=== PATIENT | male | born 1990 | race Caucasian/White ===

== ENCOUNTER 2016-04-23 18:09 | Emergency (ER) | payer SELFPAY ==
--- NOTE | 2016-04-23 19:13 | ED NURSING NOTES ---
Clinical Report - Nurses [facility] [address] [place] [address] 04/23/2016 18:11 [id number] TRI[facility] Triage time 18:28 Apr 23 2016. Acuity: LEVEL 3. Chief Complaint: PAIN WITH URINATION and PENILE DISCHARGE. KATE COMA SCORE: Kate Coma Scale: 15- eyes open spontaneously (4); best verbal response- oriented x 4 (5); best motor response- obeys commands (6). --18:32 Rodger Swanson R.N. 18:28 04/23/16. BP: 125/82. HR: 95. RR: 18. O2 saturation: 100%. Temp: 98.4 F. Pain level now 8/10. --18:32 Rodger Swanson R.N. Weight: 77.1 kg stated. Height/Length: 66 inches Per Patient. BMI: 27.4. --18:31 Rodger Swanson R.N. Medications None. --18:29 Rodger Swanson R.N. Allergies No Known Drug Allergy. --18:29 Rodger Swanson R.N. History Arrived by private vehicle. Historian: patient. Onset was gradual. (Monday). He has had testicular pain, and urgency of urination. No fever or inguinal swelling. Able to void. Treatment RARE/ENDANGERED SPECIES SPECIALIST: None. PAST MEDICAL HX: A single episode of UTI. No history of diabetes mellitus. No history of benign prostatic hypertrophy or sexually transmitted disease. Immunizations: up-to-date. SOCIAL HX: Former smoker, end date 01/2016. Alcohol use; consumes beer weekly. History of drug use: marijuana. SELF HARM ASSESSMENT: A self harm assessment was performed. The patient answered "no" to the question "Have you recently felt down, depressed, or hopeless?" and "Do you have thoughts of harming or killing yourself?". FALL RISK ASSESSMENT: Fall risk assessment completed. No fall risk identified. NUTRITIONAL RISK ASSESSMENT: The nutritional risk assessment revealed no deficiencies. FUNCTIONAL ASSESSMENT: Functional assessment: no impairments noted. LEARNING NEEDS ASSESSMENT: The learning needs assessment revealed no barriers. ABUSE ASSESSMENT: Abuse assessment: (yes) The patient was asked "Do you feel safe in your home?". SKIN INTEGRITY ASSESSMENT: Skin integrity risk assessment completed. No skin integrity risk identified. --18:32 Rodger Swanson R.N. ( Girlfriend was seen and told she probably has either gonorrhea or Chlamydia.). --18:34 Rodger Swanson R.N. PROBLEMS: no known problems. ADDITIONAL SURGERIES: Arm fx . Head surgery for mumps problems . --18:30 Rodger Swanson R.N. Interventions ID band on patient. --18:32 Rodger Swanson R.N. PHYSICAL ASSESSMENT Ambulatory to room. GENERAL / NEURO / PSYCH: Alert. Oriented X 4. Appears anxious. HEENT: Mucous membranes are pink. RESPIRATORY: Respirations not labored. Breath sounds within normal limits. CVS: Normal heart rate and rhythm. Capillary refill less than 2 seconds. GI / : Abdomen soft and nontender. Bowel sounds within normal limits. Penile abnormality noted (pains with erection stabbing). Urethral discharge. Scrotal tenderness. SKIN: Skin is warm and dry. --18:34 Rodger Swanson R.N. NURSING PROGRESS NOTES Pulse oximeter and NIBP monitor placed on patient. Patient gowned. Head of bed elevated (90). Reassurance given. Call light placed in reach. Side rails up x 1. Bed placed in lowest position. Brakes of bed on. --18:35 Rodger Swanson R.N. Clean catch urine collected. (and dirty urine sent). --18:35 Rodger Swanson R.N. 19:23 04/23/2016 Azithromycin PO Tablets 1000 mg given. Allergies verified and confirmed 5 rights. --19:23 Lamine Bowen R.N. 19:04/23/2016 Ceftriaxone IM 250 mg given. Given in the left gluteus darleen. Allergies verified and confirmed 5 rights. --19:23 Lamine Bowen R.N. DISPOSITION / DISCHARGE Condition at departure: stable. No learning barriers present. Discharge instructions provided and reviewed with the patient. Patient verbalized understanding. Written instructions provided in Sami. The patient was discharged by the physician. He was discharged home and accompanied by medical researcher. He left the Emergency Department ambulatory and via private vehicle. Patient driving. --19:37 Sheriff Luis R.N. 19:35 04/23/16. BP: 109/71. HR: 81. RR: 18. O2 saturation: 97%. Temp: 98.4 F. Pain level now: 03/18. --19:37 Sheriff Luis R.N. Locked/Released at 04/23/2016 19:37 by Sheriff Luis R.N.
--- NOTE | 2016-04-23 19:13 | ED CLINICAL REPORT ---
Clinical Report - Physicians/Mid Levels [facility] [address] [place] [address] 04/23/2016 18:11 Patient: ANDREINA HURTADO Time Seen: 18:18; initial patient contact. Arrived- By private vehicle. Historian- patient. HISTORY OF PRESENT ILLNESS Chief Complaint: PENILE DISCHARGE and DYSURIA. This started about 3 days ago and is still present. The problem is described as moderate. It was gradual in onset. The patient has had penile discharge, discomfort with urination and urgency of urination. The patient has had urinary frequency. No genital lesion, testicular pain or flank pain. Able to void. Not voiding only small amounts. The patient has had unprotected intercourse. He has had an unconfirmed exposure to a sexually transmitted disease; GC. Similar symptoms previously: None. Recent medical care: Not recently seen/assessed. REVIEW OF SYSTEMS No fever, chills, flank pain, hematuria or vomiting. No diarrhea. He has had abdominal pain. All systems otherwise negative, except as recorded above. PAST HISTORY ( Mumps Surgical: Arm fx . Head surgery for mumps problems .). Medications: None. Allergies: No Known Drug Allergy. SOCIAL HISTORY Former smoker. Occasional alcohol use. History of drug use: marijuana. ADDITIONAL NOTES The nursing notes have been reviewed with agreement regarding the chief complaint, PMH and patient medications and allergies. PHYSICAL EXAM Vital Signs: 04/23/2016 18:28 BP: 125/82. HR: 95. RR: 18. O2 saturation: 100%. Temp: 98.4 F. Have been reviewed as normal. Appearance: Alert. Oriented X3. No acute distress. ENT: Normal external inspection. CVS: Heart sounds normal. Rate normal. Rhythm normal. Respiratory: No respiratory distress. Breath sounds normal. Abdomen: Soft and nontender. Bowel sounds normal. No mass. : A scant amount of purulent urethral discharge. No genital lesion. Skin: Normal skin color. No rash. Neuro: Oriented X 3. LABS, X-RAYS, AND EKG Laboratory Tests: UA-Culture if indicated: (BRANDYN: 04/23/2016 18:30) ( MsgRcvd 04/23/2016 19:03) Final results Test Result Flag Units (Reference) URINE COLOR YELLOW URINE APPEARANCE SL CLOUDY URINE GLUCOSE NEGATIVE (NEGATIVE) URINE BILIRUBIN NEGATIVE (NEGATIVE) URINE KETONE NEGATIVE (NEGATIVE) URINE SPECIFIC GRAVITY >= 1.030 (1.010-1.030) URINE PH 6.0 (5.0-8.0) URINE PROTEIN TRACE (NEGATIVE) URINE UROBILINOGEN 0.2 EU/dL (0.2-1.0) URINE NITRITE NEGATIVE (NEGATIVE) URINE BLOOD 2+ (NEGATIVE) URINE LEUK ESTERASE POSITIVE (NEGATIVE) URINE RBC NONE SEEN rbc/hpf (0-1) URINE WBC >100 wbc/hpf (0-1) URINE EPITHELIAL CELLS 0-1 EPI/hpf (0-5) URINE BACTERIA MODERATE (2+ TO 3+) (NONE SEEN) URINE COMMENT CULTURE INDICATED URINE CULTURES ARE SET-UP BASED ON THE FOLLOWING CRITERIA:POSITIVE NITRITEPOSITIVE LEUKOCYTE ESTERASEGREATER THAN 10 WHITE BLOOD CELLSMODERATE (2+) OR GREATER BACTERIA . PROGRESS AND PROCEDURES Disposition: Discharged home in good and improved condition. Condition: good. CLINICAL IMPRESSION Exposure to STD: gonorrhea. INSTRUCTIONS Your Current Medications: CONTINUE TAKING THE FOLLOWING MEDICATIONS: None*. Follow-up: Screening today revealed the patient's blood pressure to be in the pre-hypertensive range. The patient should follow up with a primary care provider for blood pressure management. Follow-up with: [facility], , , [address], [facility], [id number] Follow up in about three days. Call for an appointment. (Electronically signed by Byron Pineda Dr. 04/23/2016 19:13)
--- NOTE | 2016-04-23 19:13 | ED NURSING NOTES ---
Clinical Report - Nurses [facility] [address] [place] [address] 04/23/2016 18:11 [id number] TRIAGE Triage time 18:28 Apr 23 2016. Acuity: LEVEL 3. Chief Complaint: PAIN WITH URINATION and PENILE DISCHARGE. KATE COMA SCORE: Kate Coma Scale: 15- eyes open spontaneously (4); best verbal response- oriented x 4 (5); best motor response- obeys commands (6). --18:32 Rodger Swanson R.N. 18:28 04/23/16. BP: 125/82. HR: 95. RR: 18. O2 saturation: 100%. Temp: 98.4 F. Pain level now 8/10. --18:32 Rodger Swanson R.N. Weight: 77.1 kg stated. Height/Length: 66 inches Per Patient. BMI: 27.4. --18:31 Rodger Swanson R.N. Medications None. --18:29 Rodger Swanson R.N. Allergies No Known Drug Allergy. --18:29 Rodger Swanson R.N. History Arrived by private vehicle. Historian: patient. Onset was gradual. (Monday). He has had testicular pain, and urgency of urination. No fever or inguinal swelling. Able to void. Treatment SCHOOL CHILD CARE ATTENDANT: None. PAST MEDICAL HX: A single episode of UTI. No history of diabetes mellitus. No history of benign prostatic hypertrophy or sexually transmitted disease. Immunizations: up-to-date. SOCIAL HX: Former smoker, end date 01/2016. Alcohol use; consumes beer weekly. History of drug use: marijuana. SELF HARM ASSESSMENT: A self harm assessment was performed. The patient answered "no" to the question "Have you recently felt down, depressed, or hopeless?" and "Do you have thoughts of harming or killing yourself?". FALL RISK ASSESSMENT: Fall risk assessment completed. No fall risk identified. NUTRITIONAL RISK ASSESSMENT: The nutritional risk assessment revealed no deficiencies. FUNCTIONAL ASSESSMENT: Functional assessment: no impairments noted. LEARNING NEEDS ASSESSMENT: The learning needs assessment revealed no barriers. ABUSE ASSESSMENT: Abuse assessment: (yes) The patient was asked "Do you feel safe in your home?". SKIN INTEGRITY ASSESSMENT: Skin integrity risk assessment completed. No skin integrity risk identified. --18:32 Rodger Swanson R.N. ( Girlfriend was seen and told she probably has either gonorrhea or Chlamydia.). --18:34 Rodger Swanson R.N. PROBLEMS: no known problems. ADDITIONAL SURGERIES: Arm fx . Head surgery for mumps problems . --18:30 Rodger Swanson R.N. Interventions ID band on patient. --18:32 Rodger Swanson R.N. PHYSICAL ASSESSMENT Ambulatory to room. GENERAL / NEURO / PSYCH: Alert. Oriented X 4. Appears anxious. HEENT: Mucous membranes are pink. RESPIRATORY: Respirations not labored. Breath sounds within normal limits. CVS: Normal heart rate and rhythm. Capillary refill less than 2 seconds. GI / : Abdomen soft and nontender. Bowel sounds within normal limits. Penile abnormality noted (pains with erection stabbing). Urethral discharge. Scrotal tenderness. SKIN: Skin is warm and dry. --18:34 Rodger Swanson R.N. NURSING PROGRESS NOTES Pulse oximeter and NIBP monitor placed on patient. Patient gowned. Head of bed elevated (90). Reassurance given. Call light placed in reach. Side rails up x 1. Bed placed in lowest position. Brakes of bed on. --18:35 Rodger Swanson R.N. Clean catch urine collected. (and dirty urine sent). --18:35 Rodger Swanson R.N. 19:23 04/23/2016 Azithromycin PO Tablets 1000 mg given. Allergies verified and confirmed 5 rights. --19:23 Lamine Bowen R.N. 19:04/23/2016 Ceftriaxone IM 250 mg given. Given in the left gluteus darleen. Allergies verified and confirmed 5 rights. --19:23 Lamine Bowen R.N. DISPOSITION / DISCHARGE Condition at departure: stable. No learning barriers present. Discharge instructions provided and reviewed with the patient. Patient verbalized understanding. Written instructions provided in Romansh. The patient was discharged by the physician. He was discharged home and accompanied by theatrical variety agent. He left the Emergency Department ambulatory and via private vehicle. Patient driving. --19:37 Sheriff Luis R.N. 19:35 04/23/16. BP: 109/71. HR: 81. RR: 18. O2 saturation: 97%. Temp: 98.4 F. Pain level now: 03/18. --19:37 Sheriff Luis R.N. Locked/Released at 04/23/2016 19:37 by Sheriff Luis R.N.
--- NOTE | 2016-04-23 19:13 | ED ORDER SUMMARY ---
..... Patient: ANDREINA HURTADO OrderSheet [facility] VisitID: [id number] [address] [place] [address] 25y, M Registration Date/Time: 04/23/2016 ORDER SHEET Weight: 77.1 kg (stated) Allergies: No Known Drug Allergy GENERAL ORDERS: GC/Chlamydia, Urine (Urine, Clean Catch) (...) Urgent (18:48 04/23/2016 Don Choudhary) (Ack 18:55 Jacquelin) (19:05 DDavis R.N.) UA-Culture if indicated Urgent (18:48 04/23/2016 Don Choudhary) (Ack 18:55 Jacquelin) (19:04 DDavis R.N.) MEDICATION ORDERS: Azithromycin PO 1000 mg (NOW) (18:49 04/23/2016 Don Choudhary) (19:23 DDavis R.N.) Ceftriaxone IM 250 mg (NOW) (18:49 04/23/2016 Don Choudhary) (19:23 DDavis R.N.) IV FLUIDS: ORDER SHEET NOTES: [Electronically signed by Byron Pineda Dr. (19:13 04/23/2016)] [Electronically signed by Sheriff Brad Luis (19:37 04/23/2016)] [Electronically locked/signed by Sheriff Brad Luis (19:37 04/23/2016)]
--- NOTE | 2016-04-23 19:13 | ED CLINICAL REPORT ---
Clinical Report - Physicians/Mid Levels [facility] [address] [place] [address] 04/23/2016 18:11 Patient: ANDREINA HURTADO Time Seen: 18:18; initial patient contact. Arrived- By private vehicle. Historian- patient. HISTORY OF PRESENT ILLNESS Chief Complaint: PENILE DISCHARGE and DYSURIA. This started about 3 days ago and is still present. The problem is described as moderate. It was gradual in onset. The patient has had penile discharge, discomfort with urination and urgency of urination. The patient has had urinary frequency. No genital lesion, testicular pain or flank pain. Able to void. Not voiding only small amounts. The patient has had unprotected intercourse. He has had an unconfirmed exposure to a sexually transmitted disease; GC. Similar symptoms previously: None. Recent medical care: Not recently seen/assessed. REVIEW OF SYSTEMS No fever, chills, flank pain, hematuria or vomiting. No diarrhea. He has had abdominal pain. All systems otherwise negative, except as recorded above. PAST HISTORY ( Mumps Surgical: Arm fx . Head surgery for mumps problems .). Medications: None. Allergies: No Known Drug Allergy. SOCIAL HISTORY Former smoker. Occasional alcohol use. History of drug use: marijuana. ADDITIONAL NOTES The nursing notes have been reviewed with agreement regarding the chief complaint, PMH and patient medications and allergies. PHYSICAL EXAM Vital Signs: 04/23/2016 18:28 BP: 125/82. HR: 95. RR: 18. O2 saturation: 100%. Temp: 98.4 F. Have been reviewed as normal. Appearance: Alert. Oriented X3. No acute distress. ENT: Normal external inspection. CVS: Heart sounds normal. Rate normal. Rhythm normal. Respiratory: No respiratory distress. Breath sounds normal. Abdomen: Soft and nontender. Bowel sounds normal. No mass. : A scant amount of purulent urethral discharge. No genital lesion. Skin: Normal skin color. No rash. Neuro: Oriented X 3. LABS, X-RAYS, AND EKG Laboratory Tests: UA-Culture if indicated: (BRANDYN: 04/23/2016 18:30) ( MsgRcvd 04/23/2016 19:03) Final results Test Result Flag Units (Reference) URINE COLOR YELLOW URINE APPEARANCE SL CLOUDY URINE GLUCOSE NEGATIVE (NEGATIVE) URINE BILIRUBIN NEGATIVE (NEGATIVE) URINE KETONE NEGATIVE (NEGATIVE) URINE SPECIFIC GRAVITY >= 1.030 (1.010-1.030) URINE PH 6.0 (5.0-8.0) URINE PROTEIN TRACE (NEGATIVE) URINE UROBILINOGEN 0.2 EU/dL (0.2-1.0) URINE NITRITE NEGATIVE (NEGATIVE) URINE BLOOD 2+ (NEGATIVE) URINE LEUK ESTERASE POSITIVE (NEGATIVE) URINE RBC NONE SEEN rbc/hpf (0-1) URINE WBC >100 wbc/hpf (0-1) URINE EPITHELIAL CELLS 0-1 EPI/hpf (0-5) URINE BACTERIA MODERATE (2+ TO 3+) (NONE SEEN) URINE COMMENT CULTURE INDICATED URINE CULTURES ARE SET-UP BASED ON THE FOLLOWING CRITERIA:POSITIVE NITRITEPOSITIVE LEUKOCYTE ESTERASEGREATER THAN 10 WHITE BLOOD CELLSMODERATE (2+) OR GREATER BACTERIA . PROGRESS AND PROCEDURES Disposition: Discharged home in good and improved condition. Condition: good. CLINICAL IMPRESSION Exposure to STD: gonorrhea. INSTRUCTIONS Your Current Medications: CONTINUE TAKING THE FOLLOWING MEDICATIONS: None*. Follow-up: Screening today revealed the patient's blood pressure to be in the pre-hypertensive range. The patient should follow up with a primary care provider for blood pressure management. Follow-up with: [facility], , , [address], [facility], [id number] Follow up in about three days. Call for an appointment. (Electronically signed by Byron Pineda Dr. 04/23/2016 19:13)
--- NOTE | 2016-04-23 19:13 | ED ORDER SUMMARY ---
..... Patient: ANDREINA HURTADO OrderSheet [facility] VisitID: [id number] [address] [place] [address] 25y, M Registration Date/Time: 04/23/2016 ORDER SHEET Weight: 77.1 kg (stated) Allergies: No Known Drug Allergy GENERAL ORDERS: GC/Chlamydia, Urine (Urine, Clean Catch) (...) Urgent (18:48 04/23/2016 Don Choudhary) (Ack 18:55 Jacquelin) (19:05 DDavis R.N.) UA-Culture if indicated Urgent (18:48 04/23/2016 Don Choudhary) (Ack 18:55 Jacquelin) (19:04 DDavis R.N.) MEDICATION ORDERS: Azithromycin PO 1000 mg (NOW) (18:49 04/23/2016 Don Choudhary) (19:23 DDavis R.N.) Ceftriaxone IM 250 mg (NOW) (18:49 04/23/2016 Don Choudhary) (19:23 DDavis R.N.) IV FLUIDS: ORDER SHEET NOTES: [Electronically signed by Byron Pineda Dr. (19:13 04/23/2016)] [Electronically signed by Sheriff Brad Luis (19:37 04/23/2016)] [Electronically locked/signed by Sheriff Brad Luis (19:37 04/23/2016)]
--- NOTE | 2016-04-23 19:38 | ED MED RECONCILIATION SUMMARY ---
Patient: ANDREINA HURTADO Medication Reconciliation Report [facility] VisitID: [id number] [address] [place] [address] 25y, M Registration Date/Time: 04/23/2016 Weight: 77.1 kg Height/Length: 66 in. BMI: 27.4 ALLERGIES: No Known Drug Allergy The patient's Home Medications are listed below: NONE. The source(s) of the original Home Medication information: Not obtained. The following Medications were given to the patient in the Emergency Department: Azithromycin [PO] PO 1000 mg, administered: 04/23/2016 7:23:00 PM Ceftriaxone [IM] IM 250 mg, administered: 04/23/2016 7:23:00 PM The following Medications were prescribed to the patient: None.
--- NOTE | 2016-04-23 19:38 | ED MAR SUMMARY ---
..... Medication Administration Record [facility] [address] [place] [address] Patient: ANDREINA HURTADO Visit ID: [id number] 25y, M Weight: 77.1 kg Height/Length: 66 in BMI: 27.4 ALLERGIES: No Known Drug Allergy Given 04/23/2016 Lamine Bowen R.N. Medication Administered: AZITHROMYCIN [PO], Dose: 1000 mg Tablets PO. Medication Ordered: Azithromycin PO 1000 mg (NOW). Given :04/23/2016 Lamine Bowen R.N. Medication Administered: CEFTRIAXONE [IM], Dose: 250 mg IM. Medication Ordered: Ceftriaxone IM 250 mg (NOW).
--- NOTE | 2016-04-23 19:38 | ED DISCHARGE INSTRUCTIONS ---
Patient: ANDREINA HURTADO General Instructions [facility] VisitID: [id number] [address] [place] [address] 25y, M Registration Date/Time: 04/23/2016 Exposure to STD: gonorrhea. INSTRUCTIONS Your Current Medications: CONTINUE TAKING THE FOLLOWING MEDICATIONS: None*. Follow-up: Screening today revealed the patient's blood pressure to be in the pre-hypertensive range. The patient should follow up with a primary care provider for blood pressure management. Follow-up with: [facility], , , [address], , [place], [id number] Follow up in about three days. Call for an appointment. ADDITIONAL INFORMATION Std (Urethritis) (Male, Adult: Gc Or Chlamydia) You have an infection in the urethra (the channel in the penis that passes urine). This is most often due to a bacterial infection with either "Chlamydia" or "Gonorrhea." This is a sexually transmitted disease (STD). It is highly contagious and passed by sexual contact with an infected partner. Symptoms begin within 1-3 weeks after exposure. There is usually a discharge from the penis and burning during urination. Many women with this infection will have only mild symptoms or no symptoms at all early in the disease. A culture test may be taken to confirm the diagnosis. Antibiotics may be started before the culture test returns. Home Care: Your sexual partner needs to be treated even if there are no symptoms. Your partner should contact their own doctor or go to an urgent care clinic or the Public Health Department to be examined and treated. Avoid sexual activity until both you and your partner have completed all antibiotic medicine, and you have been told by your doctor that you are no longer contagious. Take all antibiotic medicine as directed until it is finished. Otherwise, symptoms may recur. Learn about safe sex practices and use these in the future. The safest sex is with a partner who has tested negative and only has sex with you. Condoms offer protection from spreading some sexually transmitted diseases including Gonorrhea, Chlamydia and HIV, but are not a guarantee. Follow Up with your doctor or as advised by our staff. If a culture test was taken, you may call us in three days for the results, or as directed. Another culture test should be taken 4-6 weeks after treatment to be sure the infection has cleared. Follow up with your doctor or the Public Health Department for complete STD screening, including HIV testing. For more information about STD's, contact the National STD Hotline: . Get Prompt Medical Attention if any of the following occur: No improvement after three days of treatment Inability to urinate due to pain Rash or joint pain Painful sores on the penis Enlarged painful lymph nodes (lumps) in the groin Testicle pain or swelling of the scrotum You have been given the following additional information: Urethritis, Male (Gc Vs. Chlam) (Electronically signed by Byron Pineda Dr. 04/23/2016 19:13)
--- NOTE | 2016-04-23 19:38 | ED DISCHARGE INSTRUCTIONS ---
Patient: ANDREINA HURTADO General Instructions [facility] VisitID: [id number] [address] [place] [address] 25y, M Registration Date/Time: 04/23/2016 Exposure to STD: gonorrhea. INSTRUCTIONS Your Current Medications: CONTINUE TAKING THE FOLLOWING MEDICATIONS: None*. Follow-up: Screening today revealed the patient's blood pressure to be in the pre-hypertensive range. The patient should follow up with a primary care provider for blood pressure management. Follow-up with: [facility], , , [address], , [place], [address] Follow up in about three days. Call for an appointment. ADDITIONAL INFORMATION Std (Urethritis) (Male, Adult: Gc Or Chlamydia) You have an infection in the urethra (the channel in the penis that passes urine). This is most often due to a bacterial infection with either "Chlamydia" or "Gonorrhea." This is a sexually transmitted disease (STD). It is highly contagious and passed by sexual contact with an infected partner. Symptoms begin within 1-3 weeks after exposure. There is usually a discharge from the penis and burning during urination. Many women with this infection will have only mild symptoms or no symptoms at all early in the disease. A culture test may be taken to confirm the diagnosis. Antibiotics may be started before the culture test returns. Home Care: Your sexual partner needs to be treated even if there are no symptoms. Your partner should contact their own doctor or go to an urgent care clinic or the Public Health Department to be examined and treated. Avoid sexual activity until both you and your partner have completed all antibiotic medicine, and you have been told by your doctor that you are no longer contagious. Take all antibiotic medicine as directed until it is finished. Otherwise, symptoms may recur. Learn about safe sex practices and use these in the future. The safest sex is with a partner who has tested negative and only has sex with you. Condoms offer protection from spreading some sexually transmitted diseases including Gonorrhea, Chlamydia and HIV, but are not a guarantee. Follow Up with your doctor or as advised by our staff. If a culture test was taken, you may call us in three days for the results, or as directed. Another culture test should be taken 4-6 weeks after treatment to be sure the infection has cleared. Follow up with your doctor or the Public Health Department for complete STD screening, including HIV testing. For more information about STD's, contact the National STD Hotline: . Get Prompt Medical Attention if any of the following occur: No improvement after three days of treatment Inability to urinate due to pain Rash or joint pain Painful sores on the penis Enlarged painful lymph nodes (lumps) in the groin Testicle pain or swelling of the scrotum You have been given the following additional information: Urethritis, Male (Gc Vs. Chlam) (Electronically signed by Byron Pineda Dr. 04/23/2016 19:13)
--- NOTE | 2016-04-23 19:38 | ED MED RECONCILIATION SUMMARY ---
Patient: ANDREINA HURTADO Medication Reconciliation Report [facility] VisitID: [id number] [address] [place] [address] 25y, M Registration Date/Time: 04/23/2016 Weight: 77.1 kg Height/Length: 66 in. BMI: 27.4 ALLERGIES: No Known Drug Allergy The patient's Home Medications are listed below: NONE. The source(s) of the original Home Medication information: Not obtained. The following Medications were given to the patient in the Emergency Department: Azithromycin [PO] PO 1000 mg, administered: 04/23/2016 7:23:00 PM Ceftriaxone [IM] IM 250 mg, administered: 04/23/2016 7:23:00 PM The following Medications were prescribed to the patient: None.
--- NOTE | 2016-04-23 19:38 | ED MAR SUMMARY ---
..... Medication Administration Record [facility] [address] [place] [address] Patient: ANDREINA HURTADO Visit ID: [id number] 25y, M Weight: 77.1 kg Height/Length: 66 in BMI: 27.4 ALLERGIES: No Known Drug Allergy Given 04/23/2016 Lamine Bowen R.N. Medication Administered: AZITHROMYCIN [PO], Dose: 1000 mg Tablets PO. Medication Ordered: Azithromycin PO 1000 mg (NOW). Given :04/23/2016 Lamine Bowen R.N. Medication Administered: CEFTRIAXONE [IM], Dose: 250 mg IM. Medication Ordered: Ceftriaxone IM 250 mg (NOW).
== END 2016-04-23 19:35 | disposition home or self-care (01) ==
LOC: ED SRH 18:09
DX: A54.9 Gonococcal infection, unspecified (principal); Z87.891 Personal history of nicotine dependence
CPT/HCPCS: 90004; 90469; 91227; 91228

== ENCOUNTER 2016-06-03 16:36 | Emergency (ER) | payer OTHER ==
--- NOTE | 2016-06-03 18:29 | ED ORDER SUMMARY ---
..... Patient: ANDREINA HURTADO OrderSheet [facility] VisitID: [id number] [place] [address] 25y, M Registration Date/Time: 06/03/2016 ORDER SHEET Weight: 79.3 kg (stated) Allergies: No Known Drug Allergy GENERAL ORDERS: CBC w Diff Urgent (17:06/03/2016 HBivens A.R.N.P.) (Ack 17:05 IJurca ER Tech1) (17:23 TLewis R.N.) CMP Urgent (17:06/03/2016 HBivens A.R.N.P.) (Ack 17:05 IJurca ER Tech1) (17:23 TLewis R.N.) UA-Culture if indicated Urgent (17:06/03/2016 HBivens A.R.N.P.) (17:04 TLewis R.N.) Amylase Urgent (17:06/03/2016 HBivens A.R.N.P.) (Ack 17:05 IJurca ER Tech1) (17:23 TLewis R.N.) Lipase Urgent (17:06/03/2016 HBivens A.R.N.P.) (Ack 17:05 IJurca ER Tech1) (17:23 TLewis R.N.) MEDICATION ORDERS: IV FLUIDS: IV NS : initial bolus 1000 mL (1000 mL/hr), then none - (NOW) (17:06/03/2016 HBivens A.R.N.P.) (17:25 TLewis R.N.) Zofran IV 4 mg (NOW) (17:06/03/2016 HBivens A.R.N.P.) (17:24 TLewis R.N.) Toradol IV 30 mg (NOW) (17:06/03/2016 HBivens A.R.N.P.) (17:24 TLewis R.N.) IV Saline Lock (17:06/03/2016 HBivens A.R.N.P.) (17:23 TLewis R.N.) ORDER SHEET NOTES: [Electronically signed by Augustine Vallecillo R.N. (18:43 06/03/2016)] [Electronically signed by Stefany Pro (21:26 06/03/2016)] [Electronically locked/signed by Augustine Vallecillo R.N. (18:43 06/03/2016)]
--- NOTE | 2016-06-03 18:29 | ED CLINICAL REPORT ---
Clinical Report - Physicians/Mid Levels [facility] [address] [place] [address] 06/03/2016 16:38 Patient: ANDREINA HURTADO Time Seen: 16:56; initial patient contact, initial documentation, patient care assumed. Arrived- By private vehicle. Historian- patient. HISTORY OF PRESENT ILLNESS Chief Complaint: VOMITING. This started about 4 days ago and is still present. It was gradual in onset and has been intermittent. No recent travel. He has had nausea. He has had vomiting (today, about 7-8 episodes). The vomiting has occurred several times and has been bilious. No feculent emesis, blood-tinged emesis, coffee-grounds emesis, frankly bloody emesis or unusually dark emesis. No diarrhea, constipation, flank pain, history of possible bad food exposure or known contact with a sick individual. No change in routine. He has had mild, constant abdominal pain (feels sore). The pain is described as generalized. No nausea, vomiting, diarrhea or radiation of abdominal pain to the back. Has not recently been camping or on antibiotics. The illness is described as moderate. (started monday, felt weak and kind of queasy, es fine, mon and same as monday, and then today woke up and started puking). Similar symptoms previously: None. Recent medical care: Not recently seen/assessed. REVIEW OF SYSTEMS No fever, difficulty with urination, dark urine, chest pain or difficulty breathing. All systems otherwise negative, except as recorded above. PAST HISTORY See nurses notes. PROBLEMS: Exposure To STD. UTI - Urinary Tract Infection. --16:46 Hank Catalan R.N. Treated for Gonorrhea 2016. --16:56 Hank Catalan R.N. ADDITIONAL SURGERIES: Arm fx . Head surgery for mumps problems . --16:46 Hank Catalan R.N. SOCIAL HISTORY Never smoker. Occasional alcohol use. History of occasional drug use: marijuana. Recently used drugs days ago. No recent travel. Is a local resident. FAMILY HISTORY Diabetes in first-degree relative. ADDITIONAL NOTES The nursing notes have been reviewed with agreement regarding the chief complaint, HPI, ROS, PMH and patient medications and allergies. PHYSICAL EXAM Vital Signs: 06/03/2016 16:43 BP: 125/82. HR: 73. RR: 16. O2 saturation: 100%. Temp: 98.5 F. Pain level now: 5/10. Have been reviewed as normal and appear to be correct. Appearance: Alert. Oriented X3. No acute distress. Eyes: Pupils equal, round and reactive to light. Eyes normal inspection. Neck: Normal inspection. Neck supple. CVS: Normal heart rate and rhythm. Heart sounds normal. Pulses normal. Respiratory: No respiratory distress. Breath sounds normal. Abdomen: Soft and nontender. Bowel sounds normal. No organomegaly. No mass. Back: Normal inspection. Skin: Skin warm and dry. Normal skin color. No rash. Normal skin turgor. Extremities: Extremities exhibit normal ROM. No lower extremity edema. Neuro: Oriented X 3. No motor deficit. No sensory deficit. LABS, X-RAYS, AND EKG Laboratory Tests: UA-Culture if indicated: (BRANDYN: 06/03/2016 16:55) ( Mscvd 06/03/2016 17:21) Final results Test Result Flag Units (Reference) URINE COLOR YELLOW URINE APPEARANCE CLEAR URINE GLUCOSE NEGATIVE (NEGATIVE) URINE BILIRUBIN NEGATIVE (NEGATIVE) URINE KETONE TRACE (NEGATIVE) URINE SPECIFIC GRAVITY 1.015 (1.010-1.030) URINE PH 7.0 (5.0-8.0) URINE PROTEIN NEGATIVE (NEGATIVE) URINE UROBILINOGEN 0.2 EU/dL (0.2-1.0) URINE NITRITE NEGATIVE (NEGATIVE) URINE BLOOD TRACE-INTACT (NEGATIVE) URINE LEUK ESTERASE NEGATIVE (NEGATIVE) URINE RBC RARE rbc/hpf (0-1) URINE WBC RARE wbc/hpf (0-1) URINE EPITHELIAL CELLS RARE EPI/hpf (0-5) URINE BACTERIA NONE SEEN (NONE SEEN) URINE COMMENT CULT NOT INDICATED URINE CULTURES ARE SET-UP BASED ON THE FOLLOWING CRITERIA:POSITIVE NITRITEPOSITIVE LEUKOCYTE ESTERASEGREATER THAN 10 WHITE BLOOD CELLSMODERATE (2+) OR GREATER BACTERIA CBC w Diff: (BRANDYN: 06/03/2016 17:30) ( MsgRcvd 06/03/2016 17:44) Final results Test Result Flag Units (Reference) WHITE BLOOD COUNT 6.7 K/uL (4.5-11.5) RED BLOOD COUNT 4.54 M/uL (4.50-5.90) HEMOGLOBIN 14.6 gm/dL (13.5-17.5) HEMATOCRIT 43.0 % (41.0-53.0) MEAN CELL VOLUME 95 fL (80-100) MEAN CORPUSCULAR HGB 32 pg (26-34) MEAN CORPUSCULAR HGB CONC 34 g/dL (31-37) RED CELL DISTRIBUTION WIDTH 12.6 % (11.6-14.8) PLATELET COUNT 278 K/uL (150-400) NEUTROPHIL % 52.1 % (50-75) LYMPH % 39.0 % (25-40) MONO % 8.3 % (3-14) EOSINOPHIL % 0.3 % (0-4) BASOPHIL % 0.3 % (0-2) CMP: (BRANDYN: 06/03/2016 17:30) ( MsgRcvd 06/03/2016 17:57) Final results Test Result Flag Units (Reference) GLUCOSE 88 mg/dL (70-110) BUN 13 mg/dL (7-18) CREATININE 0.9 mg/dL (0.6-1.3) Estimated GFR >60 mL/min Estimated GFR- >60 mL/min Note: Persistent reduction over 3 months in eGFR<60 mL/min/1.73 m2 defines CKD. Patients with eGFR values>=60 mL/min/1.73 m2 may also have CKD if evidence ofpersistent proteinuria. Additional information may be foundat www.kidney.org. SODIUM 143 mmol/L (136-145) POTASSIUM 4.0 mmol/L (3.5-5.1) CHLORIDE 106 mmol/L (98-107) CARBON DIOXIDE 26 mmol/L (21-32) CALCIUM 9.3 mg/dL (8.5-10.1) TOTAL PROTEIN 8.1 g/dL (6.4-8.2) ALBUMIN 4.0 g/dL (3.3-5.0) BILIRUBIN, TOTAL 0.6 mg/dL (0.0-1.0) ALKALINE PHOSPHATASE 87 U/L (46-116) AST (SGOT) 24 U/L (15-37) ALT (SGPT) 52 U/L (12-78) LIPASE 142 U/L (73-393) AMYLASE 67 U/L (25-115) . PROGRESS AND PROCEDURES Patient counseled in person regarding the patient's stable condition, test results and diagnosis. 18:12. Differential Diagnosis: I considered gastritis, peptic ulcer disease, ischemia, gastroesophageal reflux disease, gastroparesis, Crohn's disease, ulcerative colitis, small bowel obstruction, colonic obstruction, colon cancer, gastroenteritis, cholecystitis, pancreatitis, viral syndrome, enterocolitis, urinary tract infection, hepatitis, sepsis, drugs and psychogenic etiology as a possible cause of vomiting in this patient. This is a partial list of diagnoses considered. Above considerations are based on history, physical exam, reassessment and laboratory data. Differential diagnosis was discussed with patient. Disposition: Discharged home in good and improved condition (18:29). Condition: good and stable. CLINICAL IMPRESSION Intractable vomiting with nausea. No dehydration or volume depletion. Not bilious. INSTRUCTIONS Do not work today, for two days. Take clear liquids only (frequent sips) for the next 24 hours until better. May continue medications with sips only. Advance diet as tolerated. Avoid. Warnings: GENERAL WARNINGS: Return or contact your physician immediately if your condition worsens or changes unexpectedly, if not improving as expected, or if other problems arise. SPECIFICALLY, return if you develop pain in the abdomen or pelvis, fever, the inability to keep fluids down, blood in vomitus, blood in diarrhea, fainting or lightheadedness. Prescription Medications: Zofran 4 mg: Take 1 orally every six hours as needed for nausea/vomiting. Dispense ten (10). No refills. Substitution is permissible. Follow-up: Follow up with your doctor in about two days even if well. Call for an appointment. Summary of care provided to patient. Understanding of the discharge instructions verbalized by patient. (Electronically signed by Stefany Pro A.R.N.P. 06/03/2016 21:26) Addenda for ANDREINA HURTADO VisitID: [id number] Date: 06/03/2016 06/03/2016 18:44 18:33 06/03/2016 Site #1 removed upon discharge. Catheter intact. Bandaid applied. (Electronically signed by Augustine Vallecillo R.N. - 06/03/2016 18:44)
--- NOTE | 2016-06-03 18:29 | ED NURSING NOTES ---
Clinical Report - Nurses [facility] [address] [place] [address] 06/03/2016 16:38 Patient: ANDREINA HURTADO TRIAGE Triage time 16:43 Jun 03 2016. Acuity: LEVEL 4. Chief Complaint: NAUSEA and VOMITING. Alert. No acute distress. SEPSIS SCREEN: Sepsis Screen. Negative (no infection suspected/documented). --16:48 Hank Catalan R.N. 16:43 06/03/16. BP: 125/82. HR: 73. RR: 16. O2 saturation: 100% on room air. Temp: 98.5 F. Pain level now: 06/15. --16:48 Hank Catalan R.N. Weight: 79.3 kg stated. Height/Length: 67 inches Per Patient. BMI: 27.4. --16:43 Hank Catalan R.N. Allergies No Known Drug Allergy. --18:42 Augustine Vallecillo R.N. History Arrived by private vehicle. Historian: patient. ( Pt has been queasy on/off this entire week. States he feels "just off", reports headaches, nausea, vomiting (last episode of emesis at 1000 this AM).). He has had abdominal pain (intermittent). No diarrhea. Last oral intake by patient was breakfast this morning. PAST MEDICAL HX: Immunizations: up-to-date. SOCIAL HX: Never smoker. Occasional alcohol use. History of drug use: marijuana. (1 week ago). No recent travel. No known contact with a sick individual. ABUSE ASSESSMENT: Abuse assessment: The patient was asked "Do you feel safe in your home?". No report of abuse. SELF HARM ASSESSMENT: A self harm assessment was performed. The patient answered "no" to the question "Have you recently felt down, depressed, or hopeless?". FALL RISK ASSESSMENT: Fall risk assessment completed. No fall risk identified. NUTRITIONAL RISK ASSESSMENT: The nutritional risk assessment revealed no deficiencies. FUNCTIONAL ASSESSMENT: Functional assessment: no impairments noted. LEARNING NEEDS ASSESSMENT: The learning needs assessment revealed no barriers. SKIN INTEGRITY ASSESSMENT: Skin integrity risk assessment completed. No skin integrity risk identified. --16:48 Hank Catalan R.N. PROBLEMS: Exposure To STD. UTI - Urinary Tract Infection. --16:46 Hank Catalan R.N. Treated for Gonorrhea 2016. --16:56 Hank Catalan R.N. ADDITIONAL SURGERIES: Arm fx . Head surgery for mumps problems . --16:46 Hank Catalan R.N. Interventions ID band on patient. To treatment room. --16:48 Hank Catalan R.N. PHYSICAL ASSESSMENT Ambulatory to room. GENERAL / NEURO / PSYCH: Alert. Oriented X 4. Appears in no acute distress. HEENT: Mucous membranes are pink. RESPIRATORY: Respirations not labored. GI / : Abdomen soft. Bowel sounds within normal limits. No diarrhea. No blood in the stool. ( last BM this AM.). SKIN: Skin is warm and dry. --16:50 Hank Catalan R.N. NURSING PROGRESS NOTES The plan of care for this patient has been created. Monitoring of patient in place. Head of bed elevated. Reassurance given. Call light placed in reach. Side rails up x 2. Bed placed in lowest position. Patient ready for evaluation- ED physician notified. --16:50 Hank Catalan R.N. Patient ID band checked for patient name and birthdate: patient confirmed. Instructions provided to collect clean catch urine and patient verbalized understanding. Clean catch urine collected; sample sent to lab. Specimen labeled in the presence of the patient. --16:56 Hank Catalan R.N. 17:22 06/03/2016 Site #1 started via IV in the left antecubital space with an 20g angiocath, with aseptic technique and good blood return; two attempts. Blood drawn: rainbow set. Labeled in the presence of the patient and sent to the lab. Saline lock flushed with 10 mL saline. --17:22 Augustine Vallecillo R.N. 17:23 06/03/2016 Zofran (Ondansetron HCl) IVP 4 mg given over 1 minute(s) via site #1. Allergies verified and confirmed 5 rights. IV patency established. IV site checked: no pain, redness, or swelling. IV flushed thoroughly pre- and post-medication administration. IVP given by RN. --17:24 Augustine Vallecillo R.N. 17:24 06/03/2016 Toradol IVP 30 mg given over 1 minute(s) via site #1. Allergies verified and confirmed 5 rights. IV patency established. IV site checked: no pain, redness, or swelling. IV flushed thoroughly pre- and post-medication administration. IVP given by RN. --17:24 Augustine Vallecillo R.N. 17:25 06/03/2016 Started bag #1 1000 mL IV Fluids IV NS (Saline); at 1000 mL/hr over 1 hour(s) via site #1 via IV pump. Allergies verified and confirmed 5 rights. IV patency established. IV site checked: no pain, redness, or swelling. IV flushed thoroughly pre- and post-medication administration. --17:25 Augustine Vallecillo R.N. 17:56 06/03/16. BP: 128/68. HR: 75. RR: 16. O2 saturation: 100% on room air. Pain level now: 0/10. --17:56 Hank Catalan R.N. ( Pt is resting comfortably, denies any needs, informed him of POC.). --17:56 Hank Catalan R.N. 17:56 06/03/2016 Zofran IVP Response: no adverse reaction symptoms have improved. --17:56 Hank Catalan R.N. 17:56 06/03/2016 Toradol IVP Response: no adverse reaction symptoms have improved. --17:57 Hank Catalan R.N. DISPOSITION / DISCHARGE Departure time: 183. Condition at departure: improved. ( No longer feeling nausea.). No learning barriers present. Discharge instructions provided and reviewed with the patient. Reviewed bland diet. Patient verbalized understanding. Written instructions provided in Mauritian. The patient was discharged by the nurse practitioner. He was discharged home and unaccompanied at time of discharge. He left the Emergency Department ambulatory and via private vehicle. Patient driving. --18:42 Augustine Vallecillo R.N. 18:41 06/03/16. BP: 127/85. HR: 77. RR: 15. O2 saturation: 100%. Pain level now 0/10. --18:42 Augustine Vallecillo R.N. KATE COMA SCORE: Kate Coma Scale: 15- eyes open spontaneously (4); best verbal response- oriented x 4 (5); best motor response- obeys commands (6). --18:42 Augustine Vallecillo R.N. Locked/Released at 06/03/2016 18:43 by Augustine Vallecillo R.N.
--- NOTE | 2016-06-03 18:29 | ED ORDER SUMMARY ---
..... Patient: ANDREINA HURTADO OrderSheet [facility] VisitID: [id number] [place] [address] 25y, M Registration Date/Time: 06/03/2016 ORDER SHEET Weight: 79.3 kg (stated) Allergies: No Known Drug Allergy GENERAL ORDERS: CBC w Diff Urgent (17:06/03/2016 HBivens A.R.N.P.) (Ack 17:05 IJurca ER Tech1) (17:23 TLewis R.N.) CMP Urgent (17:06/03/2016 HBivens A.R.N.P.) (Ack 17:05 IJurca ER Tech1) (17:23 TLewis R.N.) UA-Culture if indicated Urgent (17:06/03/2016 HBivens A.R.N.P.) (17:04 TLewis R.N.) Amylase Urgent (17:06/03/2016 HBivens A.R.N.P.) (Ack 17:05 IJurca ER Tech1) (17:23 TLewis R.N.) Lipase Urgent (17:06/03/2016 HBivens A.R.N.P.) (Ack 17:05 IJurca ER Tech1) (17:23 TLewis R.N.) MEDICATION ORDERS: IV FLUIDS: IV NS : initial bolus 1000 mL (1000 mL/hr), then none - (NOW) (17:06/03/2016 HBivens A.R.N.P.) (17:25 TLewis R.N.) Zofran IV 4 mg (NOW) (17:06/03/2016 HBivens A.R.N.P.) (17:24 TLewis R.N.) Toradol IV 30 mg (NOW) (17:06/03/2016 HBivens A.R.N.P.) (17:24 TLewis R.N.) IV Saline Lock (17:06/03/2016 HBivens A.R.N.P.) (17:23 TLewis R.N.) ORDER SHEET NOTES: [Electronically signed by Augustine Vallecillo R.N. (18:43 06/03/2016)] [Electronically signed by Stefany Pro (21:26 06/03/2016)] [Electronically locked/signed by Augustine Vallecillo R.N. (18:43 06/03/2016)]
--- NOTE | 2016-06-03 21:27 | ED MAR SUMMARY ---
..... Medication Administration Record [facility] [address] [place] [address] Patient: ANDREINA HURTADO Visit ID: [id number] 25y, M Weight: 79.3 kg Height/Length: 67 in BMI: 27.4 ALLERGIES: No Known Drug Allergy Given 17:23 06/03/2016 Augustine Vallecillo R.N. Medication Administered: ZOFRAN [IVP] (ONDANSETRON HCL), Dose: 4 mg IVP over 1 minute(s), Site: #1 left AC. Medication Ordered: Zofran IV 4 mg (NOW). Given 17:24 06/03/2016 Augustine Vallecillo R.N. Medication Administered: TORADOL [IVP], Dose: 30 mg IVP over 1 minute(s), Site: #1 left AC. Medication Ordered: Toradol IV 30 mg (NOW). Start 17:06/03/2016 Augustine Vallecillo R.N. Medication Administered: IV NS (SALINE), Dose: IV Fluids over 1 hour(s), Rate: 1000 mL/hr, Dispensed: 1000 mL bag, Site: #1 left AC. Medication Ordered: IV NS : initial bolus 1000 mL (1000 mL/hr), then none - (NOW).
--- NOTE | 2016-06-03 21:27 | ED MAR SUMMARY ---
..... Medication Administration Record [facility] [address] [place] [address] Patient: ANDREINA HURTADO Visit ID: [id number] 25y, M Weight: 79.3 kg Height/Length: 67 in BMI: 27.4 ALLERGIES: No Known Drug Allergy Given 17:23 06/03/2016 Augustine Vallecillo R.N. Medication Administered: ZOFRAN [IVP] (ONDANSETRON HCL), Dose: 4 mg IVP over 1 minute(s), Site: #1 left AC. Medication Ordered: Zofran IV 4 mg (NOW). Given 17:24 06/03/2016 Augustine Vallecillo R.N. Medication Administered: TORADOL [IVP], Dose: 30 mg IVP over 1 minute(s), Site: #1 left AC. Medication Ordered: Toradol IV 30 mg (NOW). Start 17:06/03/2016 Augustine Vallecillo R.N. Medication Administered: IV NS (SALINE), Dose: IV Fluids over 1 hour(s), Rate: 1000 mL/hr, Dispensed: 1000 mL bag, Site: #1 left AC. Medication Ordered: IV NS : initial bolus 1000 mL (1000 mL/hr), then none - (NOW).
--- NOTE | 2016-06-03 21:27 | ED MED RECONCILIATION SUMMARY ---
Patient: ANDREINA HURTADO Medication Reconciliation Report [facility] VisitID: [id number] [address] [place] [address] 25y, M Registration Date/Time: 06/03/2016 Weight: 79.3 kg Height/Length: 67 in. BMI: 27.4 ALLERGIES: No Known Drug Allergy The patient's Home Medications are listed below: Not obtained. The source(s) of the original Home Medication information: Not obtained. The following Medications were given to the patient in the Emergency Department: Zofran [IVP] IVP 4 mg, administered: 06/03/2016 5:23:00 PM Toradol [IVP] IVP 30 mg, administered: 06/03/2016 5:24:00 PM IV NS IV Fluids bolus 0, then 1000 mL/hr, administered: 06/03/2016 5:25:00 PM The following Medications were prescribed to the patient: Zofran 4 mg: Take 1 orally every six hours as needed for nausea/vomiting. Dispense ten (10). No refills. Substitution is permissible. -- Stefany Pro A.R.N.P.
--- NOTE | 2016-06-03 21:27 | ED DISCHARGE INSTRUCTIONS ---
Patient: ANDREINA HURTADO General Instructions [facility] VisitID: [id number] [place] [address] 25y, M Registration Date/Time: 06/03/2016 Intractable vomiting with nausea. No dehydration or volume depletion. Not bilious. INSTRUCTIONS Do not work today, for two days. Take clear liquids only (frequent sips) for the next 24 hours until better. May continue medications with sips only. Advance diet as tolerated. Avoid. Warnings: GENERAL WARNINGS: Return or contact your physician immediately if your condition worsens or changes unexpectedly, if not improving as expected, or if other problems arise. SPECIFICALLY, return if you develop pain in the abdomen or pelvis, fever, the inability to keep fluids down, blood in vomitus, blood in diarrhea, fainting or lightheadedness. Prescription Medications: Zofran 4 mg: Take 1 orally every six hours as needed for nausea/vomiting. Dispense ten (10). No refills. Substitution is permissible. Follow-up: Follow up with your doctor in about two days even if well. Call for an appointment. Summary of care provided to patient. Understanding of the discharge instructions verbalized by patient. ADDITIONAL INFORMATION Vomiting [6Yr-Adult] Vomiting is a common symptom that may be due to different causes. These include gastroenteritis ("stomach flu"), food poisoning and gastritis. There are other more serious causes of vomiting which may be hard to diagnose early in the illness. Therefore, it is important to watch for the warning signs listed below. The main danger from repeated vomiting is dehydration. This is due to excess loss of water and minerals from the body. When this occurs, body fluids must be replaced. Home Care: If symptoms are severe, rest at home for the next 24 hours. You may use acetaminophen (Tylenol) or ibuprofen (Motrin, Advil) to control fever, unless another medicine was prescribed. [NOTE : If you have chronic liver or kidney disease or ever had a stomach ulcer or GI bleeding, talk with your doctor before using these medicines.] (Aspirin should never be used in anyone under 18 years of age who is ill with a fever. It may cause severe liver damage.) Avoid tobacco and alcohol use, which may worsen your symptoms. If medicines for vomiting were prescribed, take as directed. Once vomiting stops, then follow these guidelines: During The First 12-24 Hours follow the diet below: FRUIT JUICES: Apple, grape juice, clear fruit drinks, and electrolyte replacement drinks. BEVERAGES: Soft drinks without caffeine; mineral water (plain or flavored), decaffeinated tea and coffee. SOUPS: Clear broth, consomm and bouillon DESSERTS: Plain gelatin, popsicles and fruit juice bars. As you feel better, you may add 6-8 ounces of yogurt per day. During The Next 24 Hours you may add the following to the above: Hot cereal, plain toast, bread, rolls, crackers Plain noodles, rice, mashed potatoes, chicken noodle or rice soup Unsweetened canned fruit (avoid pineapple), bananas Limit caffeine and chocolate. No spices or seasonings except salt. During The Next 24 Hours Gradually resume a normal diet, as you feel better and your symptoms lessen. Follow Up with your doctor as advised if you are not improving over the next 2-3 days. Get Prompt Medical Attention if any of the following occur: Constant right-sided lower abdominal pain or increasing general abdominal pain Continued vomiting (unable to keep liquids down) for 24 hours Frequent diarrhea (more than 5 times a day); blood (red or black color) or mucus in diarrhea Reduced urine output or extreme thirst Weakness, dizziness or fainting Unusually drowsy or confused Fever of 100.4F (38C) oral or higher, not better with fever medication Yellow color of the eyes or skin Clear Liquid Diet Clear liquids are any liquid that you can see through as well as those that are very easy to digest. This is used while the body is recovering from irritation or infection of the stomach or intestinal tract. It may also be used before special procedures or surgery. This diet is to be used no more than three days. You may include the following items. Adults Adults should drink a total of 23 quarts of liquid per day. It may be easier to drink small frequent servings rather than a few large ones. Liquids can include: Fruit juices.Strained orange juice or lemonade (no pulp), apple, grape and cranberry juice, clear fruit drinks, sports drinks Beverages.Sport drinks, sodas, mineral water (plain or flavored), tea, black coffee, liquid gelatin (add twice the recommended amount of water) Soups.Clear broth, consomm, bouillon Desserts.Plain gelatin, popsicles, fruit juice bars Children Over 2 years old The following liquids are acceptable for children over age 2: Fruit juices.Strained orange juice or lemonade (no pulp), apple, grape and cranberry juice, clear fruit drinks Beverages. Sports drinks, sodas, mineral water (plain or flavored), tea, liquid gelatin (add twice the recommended amount of water) Soups. Clear broth, consomm, bouillon Desserts. Plain gelatin, popsicles, fruit juice bars Children under 2 years old Oral rehydration fluids such are available at drug stores and most grocery stores without a prescription. [place]adoo Diet A bland diet is used for patients with an upset stomach. It consists of foods that are mild and easy to digest. It is better to eat small frequent meals rather than three large meals a day. BEVERAGES OK: Fruit juices, non-caffeinated teas and coffee, non-carbonated toney AVOID: Carbonated beverage, caffeinated tea and coffee, all alcoholic beverages BREAD OK: Refined white, wheat or rye bread, misael or soda crackers, Erica toast, plain rolls, bagels AVOID: Whole-grain bread CEREAL OK: Refined cereals: cooked or ready to eat AVOID: Whole grain cereals and granola, or those containing bran, seeds or nuts DESSERTS OK: Peanut butter and all others except those to "avoid" AVOID: Chocolate, cocoa, coconut, popcorn, nuts, seeds, jam, marmalade FRUITS OK: Canned, cooked, frozen or fresh fruits without seeds or tough skin AVOID: Olives, skin and seeds of fruit MEATS OK: All fresh or preserved meat, fish and fowl AVOID: Any that are prepared with those spices to "avoid" CHEESE & EGGS OK: Eggs, cottage cheese, cream cheese, other cheeses AVOID: All cheeses made with those spices to "avoid" POTATOES & PASTA OK: Potato, rice, macaroni, noodles, spaghetti AVOID: None SOUPS OK: All soups without heavy seasoning AVOID: Soups made with those spices to "avoid" VEGETABLES OK: Canned, cooked, fresh or frozen mildly flavored vegetables without seeds, skins or coarse fiber AVOID: Vegetables prepared with those spices to "avoid"; skin and seeds of vegetables and those with coarse fiber SPICES OK: Salt, lemon and [place] juice, vinegar, all extracts, dougie, cinnamon, thyme, mace, allspice, paprika AVOID: [place] powder, cloves, pepper, seed spices, garlic, gravy pickles, highly seasoned salad dressings Clear Liquid Diet Clear liquids are any liquid that you can see through as well as those that are very easy to digest. This is used while the body is recovering from irritation or infection of the stomach or intestinal tract. It may also be used before special procedures or surgery. This diet is to be used no more than three days. You may include the following items. Adults Adults should drink a total of 23 quarts of liquid per day. It may be easier to drink small frequent servings rather than a few large ones. Liquids can include: Fruit juices.Strained orange juice or lemonade (no pulp), apple, grape and cranberry juice, clear fruit drinks, sports drinks Beverages.Sport drinks, sodas, mineral water (plain or flavored), tea, black coffee, liquid gelatin (add twice the recommended amount of water) Soups.Clear broth, consomm, bouillon Desserts.Plain gelatin, popsicles, fruit juice bars Children Over 2 years old The following liquids are acceptable for children over age 2: Fruit juices.Strained orange juice or lemonade (no pulp), apple, grape and cranberry juice, clear fruit drinks Beverages. Sports drinks, sodas, mineral water (plain or flavored), tea, liquid gelatin (add twice the recommended amount of water) Soups. Clear broth, consomm, bouillon Desserts. Plain gelatin, popsicles, fruit juice bars Children under 2 years old Oral rehydration fluids such are available at drug stores and most grocery stores without a prescription. Ondansetron Oral disintegrating tablet What is this medicine? ONDANSETRON (on CARLEY se mushtaq) is used to treat nausea and vomiting caused by chemotherapy. It is also used to prevent or treat nausea and vomiting after surgery. How should I use this medicine? These tablets are made to dissolve in the mouth. Do not try to push the tablet through the foil backing. With dry hands, peel away the foil backing and gently remove the tablet. Place the tablet in the mouth and allow it to dissolve, then swallow. While you may take these tablets with water, it is not necessary to do so. Talk to your fire tower keeper regarding the use of this medicine in children. Special care may be needed. What side effects may I notice from receiving this medicine? Side effects that you should report to your doctor or health attending ambulatory care as soon as possible: allergic reactions like skin rash, itching or hives, swelling of the face, lips, or tongue breathing problems dizziness fast or irregular heartbeat feeling faint or lightheaded, falls fever and chills swelling of the hands and feet tightness in the chest Side effects that usually do not require medical attention (report to your doctor or health attending ambulatory care if they continue or are bothersome): constipation or diarrhea headache What may interact with this medicine? Do not take this medicine with any of the following medications: -apomorphine -cisapride -dofetilide -dronedarone -pimozide -thioridazine -ziprasidone This medicine may also interact with the following medications: -carbamazepine -phenytoin -rifampicin -tramadol -other medicines that prolong the QT interval (cause an abnormal heart rhythm) What if I miss a dose? If you miss a dose, take it as soon as you can. If it is almost time for your next dose, take only that dose. Do not take double or extra doses. Where should I keep my medicine? Keep out of the reach of children. Store between 2 and 30 degrees C (36 and 86 degrees F). Throw away any unused medicine after the expiration date. What should I tell my health care provider before I take this medicine? They need to know if you have any of these conditions: heart disease history of irregular heartbeat liver disease low levels of magnesium or potassium in the blood an unusual or allergic reaction to ondansetron, granisetron, other medicines, foods, dyes, or preservatives or trying to get breast-feeding What should I watch for while using this medicine? Check with your doctor or health attending ambulatory care as soon as you can if you have any sign of an allergic reaction. You have been given the following additional information: Vomiting (6Y-Adult) Diet, Clear Liquid Diet, [place] (Adult) Diet, Clear Liquid Ondansetron Oral disintegrating tablet Do not work today, for two days. (Electronically signed by Stefany Pro A.R.N.P. 06/03/2016 21:26)
--- NOTE | 2016-06-03 21:27 | ED MED RECONCILIATION SUMMARY ---
Patient: ANDREINA HURTADO Medication Reconciliation Report Merged With [facility] VisitID: [id number] [address] [place] [address] 25y, M Registration Date/Time: 06/03/2016 Weight: 79.3 kg Height/Length: 67 in. BMI: 27.4 ALLERGIES: No Known Drug Allergy The patient's Home Medications are listed below: Not obtained. The source(s) of the original Home Medication information: Not obtained. The following Medications were given to the patient in the Emergency Department: Zofran [IVP] IVP 4 mg, administered: 06/03/2016 5:23:00 PM Toradol [IVP] IVP 30 mg, administered: 06/03/2016 5:24:00 PM IV NS IV Fluids bolus 0, then 1000 mL/hr, administered: 06/03/2016 5:25:00 PM The following Medications were prescribed to the patient: Zofran 4 mg: Take 1 orally every six hours as needed for nausea/vomiting. Dispense ten (10). No refills. Substitution is permissible. -- Stefany Pro A.R.N.P.
== END 2016-06-03 18:38 | disposition home or self-care (01) ==
LOC: ED SRH 16:36
DX: R11.2 Nausea with vomiting, unspecified (principal)
CPT/HCPCS: 90004; 90100; 92235; 92530; 95059